=== PATIENT | female | born 1965 | race Native Hawaiian/Other Pacific Islander ===

== ENCOUNTER 2018-09-09 12:47 | Emergency (ER) | payer BC ==
[~2018-09-09] VITALS: Ht 165.1 cm; Wt 71.2 kg
[2018-09-09 12:51] VITALS: TEMP 98.1
[2018-09-09 18:10] VITALS: BP 122/76
== END 2018-09-09 18:10 | disposition home or self-care (01) ==
LOC: ED 12:47
PROC: 0RSJXZZ Reposition Right Shoulder Joint, External Approach (ICD-10-PCS; principal; 2018-09-09)
DX: S42.251A Displaced fracture of greater tuberosity of right humerus, initial encounter for closed fracture (principal); W10.8XXA Fall (on) (from) other stairs and steps, initial encounter; Y92.89 Other specified places as the place of occurrence of the external cause
CPT/HCPCS: 96374; 96375; 96376; 99284; J2175; J2250; J2270; J2550; J3010